=== PATIENT | male | born 1965 | race Caucasian/White ===

== ENCOUNTER 2017-12-03 16:14 | Emergency (ER) | payer OTHER ==
[~2017-12-03] VITALS: Ht 175.3 cm; Wt 102.1 kg
[2017-12-03] MEDS ORDERED: ZOLP10 PO (18:27)
[2017-12-03] MEDS ORDERED: TIZANIDINE HCL2 MG PO (18:27)
[2017-12-03] MEDS ORDERED: ZESTORETIC 20-121 EA PO (18:27)
[2017-12-03] MEDS ORDERED: BASAGLAR K100 UNIT/1 SC (18:28)
== END 2017-12-03 21:09 | disposition home or self-care (01) ==
LOC: ER 16:14
DX: G45.9 Transient cerebral ischemic attack, unspecified (principal); Z79.899 Other long term (current) drug therapy; Z79.4 Long term (current) use of insulin; E11.9 Type 2 diabetes mellitus without complications; Z87.891 Personal history of nicotine dependence
CPT/HCPCS: 70450; 82947; 99284

== ENCOUNTER → 2017-12-16 | Outpatient (CLI) | payer OTHER ==
[~2017-12-16] MED LIST: BASAGLAR K100 UNIT/1 SC; TIZANIDINE HCL2 MG PO; ZESTORETIC 20-121 EA PO; ZOLP10 PO
[2017-12-16 18:55] LABS: Alanine Aminotransfer (ALT/SGP 27 U/L (12-78); Albumin, Blood 3.9 g/dL (3.4-5.0); Albumin/Globulin Ratio 0.9 (0.8-1.8); Alk Phos 47 U/L (40-126); Anion Gap 8 mmol/L (6-16); Aspartate Aminotrans (AST/SGOT 17 U/L (12-37); Bilirubin, Total 0.2 mg/dL (0.1-1.0); Blood Urea Nitrogen 17 mg/dL (8-24); Bun/Creatinine Ratio 13.1 (12.0-20.0); CHOL/HDL RATIO 3.5; CO2, Blood 30 mmol/L (21-32); Calcium, Blood 9.4 mg/dL (8.5-10.1); Chloride, Blood 102 mmol/L (98-108); Cholesterol 148 mg/dL (50-200); Globulin, Blood 4.2 g/dL (2.2-4.0); Glomerular Filtration Rate 58 (60-); Glucose, Blood 267 mg/dL (70-99); HDL Cholesterol 42 mg/dL (>39); LDL/HDL RATIO 1.9; Low Density Lipoprotein Chol 79 mg/dL (<110); Potassium, Blood 3.8 mmol/L (3.5-5.5); Sodium, Blood 140 mmol/L (136-145); Total Protein, Blood 8.1 g/dL (6.4-8.2); Triglycerides 134 mg/dL (30-160); Very Low Density Lipoprot Chol 26 mg/dL (6-32)
[2017-12-16 20:08] LABS: Prostate Specific Antigen 0.229 ng/mL (0.000-4.000)
== END ==
LOC: LAB SHORT 18:13
PROVIDERS: Physician Assistant
DX: Z12.5 Encounter for screening for malignant neoplasm of prostate (principal); E11.40 Type 2 diabetes mellitus with diabetic neuropathy, unspecified; I10 Essential (primary) hypertension
CPT/HCPCS: 36415; 80053; 80061; 83036; G0103

== ENCOUNTER → 2020-08-07 | Outpatient (CLI) | payer OTHER ==
[2020-08-07 19:34] LABS: BASOPHILS ABSOLUTE AUTO 0.06 K/mm3 (0.00-0.23); BASOPHILS PERCENT AUTO 1 % (0-2); EOSINOPHILS PERCENT AUTO 1 % (0-6); Hematocrit 44.4 % (37.0-53.0); Hemoglobin 14.8 g/dL (13.5-17.5); IMMATURE GRAN ABSOLUTE AUTO 0.03 K/mm3 (0.00-0.10); IMMATURE GRAN PERCENT AUTO 0 % (0-1); LYMPHOCYTES PERCENT AUTO 37 % (21-46); MONOCYTES ABSOLUTE AUTO 0.78 K/mm3 (0.16-1.47); MONOCYTES PERCENT AUTO 10 % (4-13); Mean Corpuscular HGB Conc 33.3 g/dL (31.5-36.5); Mean Corpuscular Volume 84 fL (80-100); Mean Platelet Volume 12.9 fL (9.1-12.4); NEUTROPHILS PERCENT AUTO 51 % (41-73); Platelet Count 242 K/mm3 (150-400); RDW Coefficient Variation 12.7 % (11.7-14.2); RDW Standard Deviation 38.8 fL (35.1-46.3); Red Blood Cell Count 5.28 M/mm3 (4.30-5.90); White Blood Cell Count 8.07 K/mm3 (4.00-11.30)
[2020-08-07 20:50] LABS: Alanine Aminotransfer (ALT/SGP 38 U/L (12-78); Alk Phos 54 U/L (50-136); Anion Gap 7 mmol/L (6-16); Aspartate Aminotrans (AST/SGOT 16 U/L (12-37); Bilirubin, Total 0.4 mg/dL (0.1-1.0); Blood Urea Nitrogen 20 mg/dL (8-24); Bun/Creatinine Ratio 21.1 (12.0-20.0); CHOL/HDL RATIO 3.7; CO2, Blood 25 mmol/L (21-32); Chloride, Blood 104 mmol/L (98-108); Cholesterol 143 mg/dL (50-200); Creatinine, Blood 0.95 mg/dL (0.60-1.20); Globulin, Blood 4.2 g/dL (2.2-4.0); Glomerular Filtration Rate >60 (60-); Glucose, Blood 398 mg/dL (70-99); HDL Cholesterol 39 mg/dL (>39); LDL/HDL RATIO 2.2; Low Density Lipoprotein Chol 87 mg/dL (0-110); Potassium, Blood 4.4 mmol/L (3.5-5.5); Sodium, Blood 136 mmol/L (136-145); Total Protein, Blood 8.2 g/dL (6.4-8.2); Triglycerides 87 mg/dL (30-160); Very Low Density Lipoprot Chol 17 mg/dL (6-32)
== END | disposition home or self-care (01) ==
LOC: LAB SHORT 17:38 → PLD 17:38
PROVIDERS: Physician Assistant
DX: Z11.59 Encounter for screening for other viral diseases (principal); I10 Essential (primary) hypertension; E11.40 Type 2 diabetes mellitus with diabetic neuropathy, unspecified
CPT/HCPCS: 80053; 80061; 83036; 85025; 86803

== ENCOUNTER → 2022-01-30 | Outpatient (CLI) | payer OTHER ==
[2022-01-30 12:10] LABS: BASOPHILS ABSOLUTE AUTO 0.06 K/mm3 (0.00-0.23); BASOPHILS PERCENT AUTO 1 % (0-2); EOSINOPHILS ABSOLUTE AUTO 0.18 K/mm3 (0.00-0.68); EOSINOPHILS PERCENT AUTO 2 % (0-6); Hematocrit 41.1 % (37.0-53.0); Hemoglobin 14.5 g/dL (13.5-17.5); IMMATURE GRAN ABSOLUTE AUTO 0.02 K/mm3 (0.00-0.10); IMMATURE GRAN PERCENT AUTO 0 % (0-1); LYMPHOCYTES PERCENT AUTO 33 % (21-46); MONOCYTES ABSOLUTE AUTO 0.78 K/mm3 (0.16-1.47); MONOCYTES PERCENT AUTO 9 % (4-13); Mean Corpuscular HGB 29.2 pg (26.0-34.0); Mean Corpuscular HGB Conc 35.3 g/dL (31.5-36.5); Mean Corpuscular Volume 83 fL (80-100); Mean Platelet Volume 12.7 fL (9.1-12.4); NEUTROPHILS ABSOLUTE AUTO 4.78 K/mm3 (1.96-9.15); NEUTROPHILS PERCENT AUTO 56 % (41-73); Platelet Count 249 K/mm3 (150-400); RDW Coefficient Variation 13.2 % (11.7-14.2); RDW Standard Deviation 39.3 fL (35.1-46.3); Red Blood Cell Count 4.97 M/mm3 (4.30-5.90); White Blood Cell Count 8.62 K/mm3 (4.00-11.30)
[2022-01-30 12:20] LABS: Alanine Aminotransfer (ALT/SGP 24 U/L (12-78); Albumin, Blood 3.9 g/dL (3.4-5.0); Alk Phos 41 U/L (40-126); Anion Gap 8 mmol/L (6-16); Aspartate Aminotrans (AST/SGOT 19 U/L (12-37); Bilirubin, Total 0.5 mg/dL (0.1-1.0); Blood Urea Nitrogen 24 mg/dL (8-24); Bun/Creatinine Ratio 19.7 (12.0-20.0); CHOL/HDL RATIO 2.8; CO2, Blood 26 mmol/L (21-32); Calcium, Blood 9.5 mg/dL (8.5-10.1); Chloride, Blood 103 mmol/L (98-108); Cholesterol 135 mg/dL (50-200); Creatinine, Blood 1.22 mg/dL (0.60-1.20); Glomerular Filtration Rate 70 (60-); Glucose, Blood 183 mg/dL (70-99); HDL Cholesterol 48 mg/dL (>39); LDL/HDL RATIO 1.4; Low Density Lipoprotein Chol 67 mg/dL (<110); Sodium, Blood 137 mmol/L (136-145); Total Protein, Blood 7.9 g/dL (6.4-8.2); Triglycerides 99 mg/dL (30-160); Very Low Density Lipoprot Chol 19 mg/dL (6-32)
[2022-01-30 16:16] LABS: Prostate Specific Antigen 0.296 ng/mL (0.000-4.000)
== END | disposition home or self-care (01) ==
LOC: LAB 12:01 → LAB SHORT 12:01
PROVIDERS: Physician Assistant
DX: Z12.5 Encounter for screening for malignant neoplasm of prostate (principal); E11.40 Type 2 diabetes mellitus with diabetic neuropathy, unspecified; I10 Essential (primary) hypertension
CPT/HCPCS: 80053; 80061; 83036; 85025; G0103

== ENCOUNTER 2024-09-22 16:20 | Inpatient (IN) | payer OTHER ==
[~2024-09-22] VITALS: Ht 177.8 cm; Wt 99.3 kg
[2024-09-22 17:19] LABS: Influenza A, PCR NEGATIVE (NEGATIVE); Influenza B, PCR NEGATIVE (NEGATIVE); Resp Syncytial Virus, PCR NEGATIVE (NEGATIVE); SARS-Cov-2 (COVID-19) PCR, MMC NEGATIVE (NEGATIVE)
[2024-09-22] MEDS ORDERED: Acetaminophen 500 MG Tab PO ONE ×2 (18:00→21:05)
[2024-09-22] MEDS ORDERED: Lactated Ringer's 1,000 ML IV ONE (18:10)
[2024-09-22] MEDS ORDERED: Metoclopramide HCl 5MG / ML 2ML Vial IV ONE (19:35)
[2024-09-22 20:42] LABS: BASOPHILS ABSOLUTE AUTO 0.02 K/mm3 (0.00-0.23); BASOPHILS PERCENT AUTO 0 % (0-2); EOSINOPHILS PERCENT AUTO 0 % (0-6); Hematocrit 39.7 % (37.0-53.0); Hemoglobin 14.2 g/dL (13.5-17.5); IMMATURE GRAN ABSOLUTE AUTO 0.03 K/mm3 (0.00-0.10); IMMATURE GRAN PERCENT AUTO 0 % (0-1); LYMPHOCYTES ABSOLUTE AUTO 0.96 K/mm3 (0.84-5.20); LYMPHOCYTES PERCENT AUTO 11 % (21-46); MONOCYTES ABSOLUTE AUTO 0.91 K/mm3 (0.16-1.47); MONOCYTES PERCENT AUTO 11 % (4-13); Mean Corpuscular HGB 29.3 pg (26.0-34.0); Mean Corpuscular HGB Conc 35.8 g/dL (31.5-36.5); Mean Corpuscular Volume 82 fL (80-100); NEUTROPHILS ABSOLUTE AUTO 6.62 K/mm3 (1.96-9.15); NEUTROPHILS PERCENT AUTO 78 % (41-73); Platelet Count 206 K/mm3 (150-400); RDW Coefficient Variation 12.1 % (11.7-14.2); RDW Standard Deviation 36.7 fL (35.1-46.3); Red Blood Cell Count 4.84 M/mm3 (4.30-5.90); White Blood Cell Count 8.54 K/mm3 (4.00-11.30)
[2024-09-22 20:52] LABS: Source, Urine Clean Catch
[2024-09-22 20:56] LABS: Appearance, Urine Hazy (Clear); Bilirubin, Urine Neg (Neg); Blood, Urine 1+ (Neg); Color, Urine Yellow (P-Yellow); Glucose Qualitative, Urine 4+ (Neg); Ketones, Urine 4+ (Neg); Leukocyte Esterase, Urine Neg (Neg); Nitrite, Urine Neg (Neg); Protein, Urine 2+ (Neg); Specific Gravity, Urine 1.015 (1.003-1.022); Urobilinogen, Urine NORM (Normal)
[2024-09-22 21:01] LABS: Albumin, Blood 2.9 g/dL (3.4-5.0); Albumin/Globulin Ratio 0.6 (0.8-1.8); Bilirubin, Total 0.6 mg/dL (0.1-1.0); Bun/Creatinine Ratio 17.8 (12.0-20.0); Calcium, Blood 8.3 mg/dL (8.5-10.1); Creatinine, Blood 1.01 mg/dL (0.60-1.20); Globulin, Blood 4.6 g/dL (2.2-4.0); Potassium, Blood 4.2 mmol/L (3.5-5.5); Total Protein, Blood 7.5 g/dL (6.4-8.2)
[2024-09-22 21:02] LABS: Mucus Mod (0-Heavy); Red Blood Cells, Urine 0-2 /hpf (0-2); White Blood Cells, Urine 0-2 /hpf (0-5)
[2024-09-22 21:03] LABS: Amorphous Light (0-Heavy); Bacteria Mod /hpf; Squamous Epithelial Cells Rare /hpf (Few)
[2024-09-22] MEDS ORDERED: Baclofen 10 MG Tab PO ONE (21:10)
[2024-09-22] MEDS ORDERED: NS 1,000 ML IV SCH ×2 (22:25→23:52)
[2024-09-23] VITALS (9 sets, daily range): BP systolic 141–185; BP diastolic 75–91
[2024-09-23] MEDS ORDERED: Crestor40 MG PO (00:30)
[2024-09-23] MEDS ORDERED: TiZANidine HCl 4 MG Tab PO PRN (00:50)
--- NOTE | 2024-09-23 01:26 | NUR ---
ADMISSION NOTE PT ARRIVED TO RM [id number] AT 0023. PT ACCOMPANIED BY . PT WAS AOX4, CALM AND COOPERATIVE. PT STATED HE WANTED TO SLEEP. PT WAS NOTICEABLY TIRED. HE WAS PLACED ON TELEMETRY. RN EXPLAINED CALL LIGHT TO PT AND PT VERBALIZED UNDERSTANDING. BED WAS LOCKED IN LOWEST POSITION. THIS RN TO ASSUME CARE.
[2024-09-23 03:03] LABS: BASOPHILS ABSOLUTE AUTO 0.05 K/mm3 (0.00-0.23); BASOPHILS PERCENT AUTO 1 % (0-2); EOSINOPHILS ABSOLUTE AUTO 0.01 K/mm3 (0.00-0.68); EOSINOPHILS PERCENT AUTO 0 % (0-6); Hematocrit 38.9 % (37.0-53.0); Hemoglobin 13.8 g/dL (13.5-17.5); IMMATURE GRAN ABSOLUTE AUTO 0.02 K/mm3 (0.00-0.10); IMMATURE GRAN PERCENT AUTO 0 % (0-1); LYMPHOCYTES ABSOLUTE AUTO 1.64 K/mm3 (0.84-5.20); LYMPHOCYTES PERCENT AUTO 19 % (21-46); MONOCYTES ABSOLUTE AUTO 1.29 K/mm3 (0.16-1.47); MONOCYTES PERCENT AUTO 15 % (4-13); Mean Corpuscular HGB Conc 35.5 g/dL (31.5-36.5); Mean Corpuscular Volume 82 fL (80-100); Mean Platelet Volume 11.3 fL (9.1-12.4); NEUTROPHILS ABSOLUTE AUTO 5.78 K/mm3 (1.96-9.15); NEUTROPHILS PERCENT AUTO 66 % (41-73); Platelet Count 199 K/mm3 (150-400); RDW Coefficient Variation 12.2 % (11.7-14.2); RDW Standard Deviation 37.2 fL (35.1-46.3); Red Blood Cell Count 4.76 M/mm3 (4.30-5.90); White Blood Cell Count 8.79 K/mm3 (4.00-11.30)
[2024-09-23 03:28] LABS: Magnesium, Blood 1.7 mg/dL (1.6-2.4)
[2024-09-23 03:29] LABS: Calcium, Blood 8.1 mg/dL (8.5-10.1); Creatinine, Blood 0.85 mg/dL (0.60-1.20); Potassium, Blood 3.8 mmol/L (3.5-5.5)
--- NOTE | 2024-09-23 06:33 | NUR ---
SHIFT SUMMARY PT HAS BEEN RESTING IN BED COMFORTABLY SINCE ARRIVING ONTO FLOOR. PT HAS BEEN AOX4, CALM AND COOPERATIVE. PT REPORTED GENERALIZED WEAKNESS AND FATIGUE THROUGHOUT NIGHT. HE ALSO REPORTED GENERALIZED MUSCLE ACHES. PT HAS BEEN SBA TO BATHROOM. PT HAS BEEN ON TELEMETRY. OTHER THAN PAIN, NO COMPLAINTS FROM PT. NO ACUTE EVENTS OVERNIGHT.
[2024-09-23] MEDS ORDERED: Insulin Regular 100 UNIT/ML 10ML Vial SC SCH (07:30)
[2024-09-23] MEDS ORDERED: Insulin Glargine-Yfgn 100 Unit/mL 3 ML SYR SC SCH (09:00)
[2024-09-23] MEDS ORDERED: Enoxaparin 40 MG/0.4 ML SYR SC SCH (09:00)
[2024-09-23] MEDS ORDERED: Rosuvastatin Calcium 10 MG Tab PO SCH (09:00)
[2024-09-23] MEDS ORDERED: Lisinopril 20 MG Tab PO SCH (09:00)
[2024-09-23 12:53] LABS: Bun/Creatinine Ratio 15.6 (12.0-20.0); Creatinine, Blood 0.9 mg/dL (0.60-1.20)
[2024-09-23] MEDS ORDERED: Acetaminophen 325 MG TABLET PO PRN (14:55)
[2024-09-23] MEDS ORDERED: NS 1,000 ML IV SCH (15:00)
--- NOTE | 2024-09-23 19:39 | NUR ---
HOSPITALIST CONTACT AT CHANGE OF SHIFT REPORT FOUND PT HAD HICCUPS--PT REPORTS HAS HAD THEM FOR 6 HOURS. PT SAID HE HAD THEM FOR 30 HOURS PRIOR TO COMING TO ED; WAS GIVEN BACLOFEN AND REGLAN WHICH HELPED FOR APROX 12 HOURS BUT HAVE RETURNED. CALL TO HOSPITALIST; SPOKE TO LATRICE; NEW ORDER FOR BACLOFEN 10MG PO X1 NOW.
[2024-09-23] MEDS ORDERED: Baclofen 10 MG Tab PO ONE (19:40)
--- NOTE | 2024-09-23 19:45 | NUR ---
SHIFT SUMMARY PT IS A/OX4. SBA TO THE BATHROOM TO ASSIST WITH LINES/CORDS AND D/T INCREASED WEAKNESS. ON TELE RUNNING SINUS TACH IN THE 110'S. CONTINUOUS NS RUNNING @ 200 ML/HR. PT CONTINUES TO REPORT HICCUPS THROUGHOUT THIS SHIFT. LOW GRADE FEVER ALSO PRESENT THROUGHOUT THIS SHIFT, PHYSICAN AWARE AND MEDICATED WITH TYLENOL PER AUG. PT'S AT BEDSIDE THROUGHOUT THIS SHIFT. PT CALLS APPROPRIATELY USING THE CALL LIGHT.
[2024-09-23] MEDS ORDERED: Zolpidem Tartrate 10 MG Tab PO SCH (21:00)
[2024-09-23 23:48] LABS: Bun/Creatinine Ratio 15.8 (12.0-20.0); Calcium, Blood 7.4 mg/dL (8.5-10.1); Creatinine, Blood 0.82 mg/dL (0.60-1.20); Potassium, Blood 3.7 mmol/L (3.5-5.5)
[2024-09-24] MEDS ORDERED: LORazepam 2 MG/ML 1ML Injection IV ONE (01:20)
[2024-09-24 03:30] VITALS: BP 175/87
[2024-09-24 04:51] LABS: BASOPHILS ABSOLUTE AUTO 0.04 K/mm3 (0.00-0.23); BASOPHILS PERCENT AUTO 1 % (0-2); EOSINOPHILS PERCENT AUTO 0 % (0-6); Hematocrit 36.1 % (37.0-53.0); Hemoglobin 12.9 g/dL (13.5-17.5); IMMATURE GRAN ABSOLUTE AUTO 0.04 K/mm3 (0.00-0.10); IMMATURE GRAN PERCENT AUTO 1 % (0-1); LYMPHOCYTES ABSOLUTE AUTO 1.15 K/mm3 (0.84-5.20); LYMPHOCYTES PERCENT AUTO 16 % (21-46); MONOCYTES ABSOLUTE AUTO 1.02 K/mm3 (0.16-1.47); MONOCYTES PERCENT AUTO 14 % (4-13); Mean Corpuscular HGB 29.1 pg (26.0-34.0); Mean Corpuscular HGB Conc 35.7 g/dL (31.5-36.5); Mean Corpuscular Volume 82 fL (80-100); Mean Platelet Volume 11.1 fL (9.1-12.4); NEUTROPHILS ABSOLUTE AUTO 4.87 K/mm3 (1.96-9.15); NEUTROPHILS PERCENT AUTO 68 % (41-73); Platelet Count 194 K/mm3 (150-400); RDW Coefficient Variation 12.3 % (11.7-14.2); RDW Standard Deviation 37.1 fL (35.1-46.3); Red Blood Cell Count 4.43 M/mm3 (4.30-5.90); White Blood Cell Count 7.12 K/mm3 (4.00-11.30)
[2024-09-24 05:14] LABS: Bun/Creatinine Ratio 14.7 (12.0-20.0); Calcium, Blood 7.6 mg/dL (8.5-10.1); Creatinine, Blood 0.82 mg/dL (0.60-1.20); Potassium, Blood 3.8 mmol/L (3.5-5.5)
--- NOTE | 2024-09-24 06:38 | NUR ---
ULTRASOUND SONOGRAPHER SUMMARY PT A/OX4. SEE PREVIOUS NURSE NOTE. PT HAVING HICCUPS T/O THE NIGHT. PT GIVEN BACLOFEN WITH GOOD RESULT FOR A FEW HOURS. WHEN HICCUPS PERSISTED AGAIN, ANOTHER CALL TO HOSPITALIST; SPOKE WITH DR STONER. NEW ORDER FOR 1MG IV ATIVAN 1X. GAVE PT MED WITH GOOD EFFECT. PT IS ON TELE, RUNNING NORMAL SINUS TO SINUS TACH IN THE 1-TEENS. PT HR ELEVATES TO 130'S WITH ACTIVITY. PT DENIES SYMPTOMS. PT IS ABLE TO MAKE NEEDS KNOWN. CALL LIGHT ACESSIBLE. PT CALL APPROPRIATELY. CARE WILL CONTINUE UNTIL REPORT GIVEN TO ONCOMING NURSE.
[2024-09-24 07:47] VITALS: BP 165/86
[2024-09-24] MEDS ORDERED: Sodium Chloride 1 GM TAB PO SCH (10:00)
[2024-09-24] MEDS ORDERED: NS 1,000 ML IV ONE (11:00)
[2024-09-24 11:09] VITALS: BP 149/78
[2024-09-24 15:11] LABS: Bun/Creatinine Ratio 12.7 (12.0-20.0); Calcium, Blood 7.4 mg/dL (8.5-10.1); Creatinine, Blood 0.79 mg/dL (0.60-1.20); Potassium, Blood 3.7 mmol/L (3.5-5.5)
[2024-09-24 15:59] VITALS: BP 175/89
[2024-09-24] MEDS ORDERED: LISI20 PO (17:18)
[2024-09-24] MEDS ORDERED: SODCHL1 PO (17:20)
--- NOTE | 2024-09-24 17:45 | NUR ---
PT DISCHARGED TO HOME WITH . ALL VALUABLES RETURNED AND SENT HOME WITH THE PT. DISCHARGE INSTRUCTIONS PROVIDED AND EDUCATED ON AT TIME OF DISCHARGE.
== END 2024-09-24 17:54 | disposition home or self-care (01) | DRG 641 ==
LOC: ER 16:20 → MEDS 16:21
PROVIDERS: Family Medicine; Registered Nurse; Student in an Organized Health Care Education/Training Program; ADMIT Student in an Organized Health Care Education/Training Program
DX: E87.1 Hypo-osmolality and hyponatremia (principal); R65.10 Systemic inflammatory response syndrome (SIRS) of non-infectious origin without acute organ dysfunction; E11.319 Type 2 diabetes mellitus with unspecified diabetic retinopathy without macular edema; I10 Essential (primary) hypertension; E11.649 Type 2 diabetes mellitus with hypoglycemia without coma; R06.6 Hiccough; M79.10 Myalgia, unspecified site; E78.5 Hyperlipidemia, unspecified; M54.9 Dorsalgia, unspecified; E86.0 Dehydration; G89.29 Other chronic pain; G47.00 Insomnia, unspecified; Z87.891 Personal history of nicotine dependence; Z91.038 Other insect allergy status; Z79.4 Long term (current) use of insulin; Z79.899 Other long term (current) drug therapy
CPT/HCPCS: 0241U; 36415; 71045; 80048; 80053; 81001; 82947; 83735; 85025; 87040; 87086; 93005; 93010; 94760; 96361; 96372; 96374; 99284-25; A9270; G0378; J1650; J1815; J2060; J2765; J7030; J7120

== ENCOUNTER → 2024-09-29 | Outpatient (CLI) | payer OTHER ==
[~2024-09-29] MED LIST changes: +Crestor40 MG PO; +LISI20 PO; +SODCHL1 PO
== END ==
LOC: LAB SHORT 16:47 → LAB 16:47
DX: E11.65 Type 2 diabetes mellitus with hyperglycemia (principal); Z79.4 Long term (current) use of insulin
CPT/HCPCS: 87086